=== PATIENT | male | born 1985 | race Caucasian/White ===

== ENCOUNTER 2022-08-04 21:03 | Emergency (ER) | payer MEDICAID, SELFPAY ==
[2022-08-04 21:12] VITALS: BP 132/87; PULSE 119; RESP 18; TEMP 36.5; O2SAT 98; BMI 30.1
--- NOTE | 2022-08-04 21:58 | ED_ITS ---
HPI - Wound/Laceration General Chief Complaint: Wound/Laceration Stated Complaint: laceration on lip Time Seen by Provider: 08/04/22 21:57 Source: patient Mode of arrival: ambulatory Limitations: no limitations History of Present Illness HPI narrative: 37-year-old male presents with laceration to his bottom lip after being hit in the face with a piece of wood. He was cutting wood and a piece flew back into his face. It is unknown when his last Tdap vaccine was updated. He does not report any other injuries. Onset (ago): hour(s) (Within the hour of arrival) Location: face Place: home Patient tetanus UTD: No Context: accidental Associated symptoms: pain Related Data Previous Rx's Medication Instructions Recorded amoxicillin 875 mg-potassium 1 tab PO Q12H 7 days #14 tabs 08/04/22 clavulanate 125 mg tablet Allergies Allergy/AdvReac Type Severity Reaction Status Date / Time No Known Allergies Allergy Verified 08/04/22 21:58 Review of Systems Review of Systems: Constitutional: No Fever, No Chills ENT/Mouth: No Ear Pain, No Hoarseness, No sore throat Eyes: No Eye Pain, No Swelling, No Redness, No Foreign Body Cardiovascular: No Chest Pain, No SOB Respiratory: No Cough, No Dyspnea Gastrointestinal: No Nausea, No Vomiting, No Diarrhea, No abdominal Pain Genitourinary: No Dysuria, No Hematuria Musculoskeletal: No joint pain, No Myalgias, No Joint Swelling Skin: Positive lower lip laceration, No rash Neuro: No Weakness, No Numbness, No Paresthesias, No Loss of Consciousness, No Dizziness, No Headache Psych: No Anxiety/Panic, No Depression Heme/Lymph: no easy bruising, no Lymphadenopathy Endocrine: No Polyuria, No Polydipsia Yes all other systems are reviewed and are negative FORMERLY [facility], [facility]–1983 Past Medical History Attestation statement: The following information was validated with the patient. Source: old records reviewed Social History Social History Advance Directives: No Advance Directives Information Provided: No Physical Exam Vital Signs: Vital Signs: Last Vital Signs Temp 97.7 F 08/04/22 21:12 Pulse 119 H 08/04/22 21:12 Resp 18 08/04/22 21:12 BP 132/87 08/04/22 21:12 Pulse Ox 98 08/04/22 21:12 O2 Del Method 08/04/22 21:12 BMI result Body Mass Index 30.1 Appearance: Alert. Oriented X3. No acute distress. Eyes: Pupils equal, round and reactive to light. ENT: Pharynx normal. Neck: Normal inspection. Neck supple. CVS: Normal heart rate and rhythm. Pulses normal. Respiratory: No respiratory distress. Breath sounds normal. Abdomen: Soft and nontender. Skin: 1 cm laceration to the lower lip, Skin warm and dry. Normal skin color. Normal skin turgor. Extremities: Gait well balanced well coordinated Neuro: No motor deficit. No sensory deficit. Cranial nerves 2-12 intact Course Course Course Narrative: 37-year-old male presents for laceration to the lower lip. Unknown when his last Tdap vaccine was updated. Will update today. Irrigated with copious amounts of sterile saline, no foreign bodies noted. Prepped and draped in sterile fashion. Please refer to procedure note for full details. No other injuries noted. Patient understands signs and symptoms indicating infection. Plan of care is to discharge home, prescription for Augmentin. Patient verbalized understanding of and agrees to plan of care. MDM - Wound/Laceration Differential Diagnosis Differential diagnosis: Likely laceration Medical Records Attestation: I reviewed the patient's medical records. Procedures Laceration Laceration 1: Site: lip (Mid lower lip) Size (cm): 1.5 Description: linear Depth: simple, single layer Local Anesthetic: lidocaine 1% and with epi Amount of anesthesia used (mL): 2 Pre-repair: wound explored, irrigated extensively and deep structures intact Skin layer closed with: other (Chromic gut) Size (cm): 6-0 Number of sutures: 5 Technique: simple, interrupted Discharge Plan Discharge Clinical Impression: Laceration Patient Disposition: Home, Self-Care Instructions: Care For Your Absorbable Stitches (ED), Facial Laceration (ED) Additional Instructions: You were evaluated for laceration to the lower lip. We placed 5 dissolvable sutures. Please follow absorbable stitch instructions. Try not to smoke while the sutures are in place. Smoking will increase risk for infection. Do not eat really hot in temperature foods. Do not eat acidic, salty, spicy, or vinegar foods while wound is healing. Take Augmentin 875 mg twice a day for the next 7 days. We updated your Tdap vaccine today Thank you for choosing this emergency department for evaluation. Please follow-up with primary care physician as needed. Return to the emergency department for any new, concerning, or worsening symptoms. Prescriptions: New amoxicillin-pot clavulanate 875-125 mg tablet 1 tab PO Q12H 7 Days Qty: 14 0RF
[2022-08-04] MEDS: Amoxicillin/Potassium Clav 875 MG TABLET PO (23:07)
[2022-08-04] MEDS: Diphth,Pertus(ACell),Tet Adult 0.5 ML SYRINGE IM (23:08)
[2022-08-04] MEDS: Lidocaine HCl 2% PF/Epi 1:200 20 ML VIAL INFILTRATI (23:09)
== END 2022-08-04 23:50 | disposition home or self-care (01) ==
PROVIDERS: Emergency Provider Emergency Medicine Emergency Medical Services
DX: S00.511A Abrasion of lip, initial encounter (principal); W26.9XXA Contact with unspecified sharp object(s), initial encounter; Y93.9 Activity, unspecified; Y92.9 Unspecified place or not applicable; Y99.9 Unspecified external cause status; Z79.899 Other long term (current) drug therapy
CPT/HCPCS: 12011; 90471; 90715; 99282; 99284

== ENCOUNTER 2023-12-24 12:35 | Emergency (ER) | payer OTHER, SELFPAY ==
[2023-12-24 13:25] VITALS: BP 157/85; PULSE 113; RESP 18; TEMP 37.1; BMI 31.3
--- NOTE | 2023-12-24 13:35 | ED_ITS ---
HPI - Medical Clearance General Chief complaint: Medical Clearance Stated complaint: Methadone Time Seen by Provider: 12/24/23 13:50 Source: patient Mode of arrival: ambulatory Limitations: no limitations History of Present Illness HPI Narrative: Patient is a 38-year-old male with history of opioid use disorder presenting to the emergency department requesting medical clearance to start at methadone clinic tomorrow. He reports using 20-30 bags daily. Has been on methadone through [facility] in the past. States he spoke with the clinic and was told if he came to the ED for medical clearance he could start at the clinic tomorrow. Last used 3 bags at 5am today. complaint: medical clearance requested Traumatic Symptoms: denies traumatic injury Associated Symptoms: other (feels anxious) Related Information Previous Rx's Medication Instructions Recorded amoxicillin 875 mg-potassium 1 tab PO Q12H 7 days #14 tabs 08/04/22 clavulanate 125 mg tablet Allergies Allergy/AdvReac Type Severity Reaction Status Date / Time No Known Allergies Allergy Verified 07/17/23 15:16 Review of Systems Review of Systems: As per HPI. Yes all other systems are reviewed and are negative Constitutional: Constitutional: Reports as per HPI [facility] Social History Social History (System 07/17/23 @ 15:16 by Zoey Thomas) Advance Directives: No Physical Exam Vital Signs: Vital Signs: Last Vital Signs Temp 98.8 F 12/24/23 13:25 Pulse 113 H 12/24/23 13:25 Resp 18 12/24/23 13:25 BP 157/85 H 12/24/23 13:25 BMI result Body Mass Index 31.3 Vital signs have been reviewed and appear to be correct. Blood pressure elevated. Heart rate tachycardic. Respiratory rate normal. Temperature normal. Const: General: cooperative, healthy appearing and no acute distress Orientation/consciousness: oriented to person, oriented to place, oriented to time and patient oriented x3 Limitations: no limitations HEENT: Head: Yes normocephalic and Yes atraumatic Ears: external ears normal General nose exam: Normal external nose present Face and sinus: Yes face symmetric Mouth: oropharynx normal and moist mucous membranes Throat: Yes uvula midline Eyes: Pupils: Equal, round and reactive pupils present Neck: Neck: Yes normal visual inspection and Yes supple Resp: Effort & Inspection: normal respiratory effort and able to speak in complete sentences Auscultation: clear to auscultation bilaterally Cardio: Rate: regular rate Rhythm: regular rhythm Heart sounds: S1 normal heart sound present and S2 normal heart sound present GI: Palpation (GI): Soft to palpation and nontender Auscultation: normoactive bowel sounds : General: Yes no CVA tenderness Back/Spine/Pelvis: Back: no CVA tenderness Skin: General skin exam: elasticity normal and turgor normal Neuro: General: oriented to person, oriented to place, oriented to time, patient oriented x3, moves all extremities, no focal motor deficits and CN's II- XI intact bilaterally Cranial nerves: Yes Equal, round and reactive pupils present Cognition (Neuro): normal cognition Extrem: General: Yes full ROM, Yes no pedal edema and Yes no calf tenderness Psych: Mental Status: mental status grossly normal Affect: normal affect Thought process: Normal thought process present Course Course Course Narrative: This is an RME: Additional HPI, ROS, PE not included below will be deferred to primary provider. This is a 38-year-old male, the history of opioid use disorder, presenting to the emergency department for evaluation of wanting to start methadone. He is here for his 1st dose today. Using 30-40 bags of heroin a day. Has previously been on methadone before. Plan: EKG, addiction medicine Medical Decision Making Medical Decision Making [facility] Narrative: Patient is a 38-year-old male with history of opioid use disorder presenting to the emergency department requesting medical clearance to start at methadone clinic tomorrow. On exam patient is awake, A+Ox3, tachycardic, BP elevated, afebrile, normal neurological exam without focal deficits, physical exam findings as above. Given reported symptoms and physical exam findings, initial differential includes opioid use disorder, opioid dependence. EKG shows normal sinus rhythm. Urine drug screen positive for fentanyl. Patient medicated with 30 mg of methadone in the emergency department and also provided with take home Narcan and instructions. Patient evaluated by addiction medicine. Patient discharged home with instructions to follow-up at [facility] in the morning. Return precautions discussed at bedside. Patient verbalized understanding of and agreement with plan. Differential Diagnosis Differential Diagnoses: The differential diagnosis associated with the presentation includes As per [facility]. Lab Data [facility] Lab Attestation statement: I reviewed the patient's lab results. As per [facility] Labs: Lab Results 12/24/23 Range/Units 14:41 Urine Opiates Screen Not Detected (Not Detect) Urine Fentanyl Screen POSITIVE H (Not Detect) Ur Barbiturates Screen Not Detected (Not Detect) Ur Phencyclidine Scrn Not Detected (Not Detect) Ur Amphetamines Screen Not Detected (Not Detect) U Benzodiazepines Scrn Not Detected (Not Detect) Urine Cocaine Screen Not Detected (Not Detect) U Marijuana (THC) Screen Not Detected (Not Detect) Independent Interpretation I performed an independent interpretation of an: EKG (normal sinus rhythm, rate 96 bpm, normal HI interval and QTc) External Record Review External record reviewed: Inpatient record, Office record and Outpatient record Discharge Plan Discharge Clinical Impression: Opioid dependence Patient Disposition: Home, Self-Care Instructions: Methadone (By mouth), Naloxone (Into the nose), Opioid Withdrawal (ED), Opioid Use Disorder (ED) Additional Instructions: You were seen in the emergency department today for medical clearance prior to starting at methadone clinic tomorrow. Your EKG showed normal sinus rhythm. Your urine drug screen was positive for fentanyl. Your medicated with 30 mg of methadone in the emergency department today. You were seen by our addiction medicine team. Please follow up with the clinic tomorrow as planned. You are being provided with take-home Narcan, please use if needed. Return to the emergency department with any concerning symptoms. Prescriptions: No Action amoxicillin-pot clavulanate 875-125 mg tablet 1 tab PO Q12H 7 Days Qty: 14 0RF
--- NOTE | 2023-12-24 13:36 | ECG_ITS ---
Test Reason : STARTING METHADONE Blood Pressure : / mmHG Vent. Rate : 096 BPM Atrial Rate : 096 BPM P-R Int : 146 ms QRS Dur : 080 ms QT Int : 340 ms P-R-T Axes : 071 057 061 degrees QTc Int : 429 ms Normal sinus rhythm Possible Left atrial enlargement Borderline ECG No previous ECGs available Referred By: Latrice Toscano Electronically Signed By:YAZAN FRANCO
--- NOTE | 2023-12-24 14:50 | PC.NURSE ---
urine obtained/sent to lab.
[2023-12-24 14:58] LABS: Amphetamine Screen Urine Not Detected (Not Detect); Barbiturates, Urine Not Detected (Not Detect); Benzodiazepines Screen Urine Not Detected (Not Detect); Cannabinoid Screen Urine Not Detected (Not Detect); Cocaine Screen Urine Not Detected (Not Detect); Fentanyl, urine POSITIVE (Not Detect); Opiate Screen Urine Not Detected (Not Detect); Phencyclidine Screen Urine Not Detected (Not Detect)
[2023-12-24] MEDS: methADONE HCl 20 MG/2 ML ORAL.CONC 30 MG PO (15:42)
[2023-12-24 15:45] VITALS: BP 141/92; PULSE 101; RESP 18; O2SAT 100
[2023-12-24] MEDS: Naloxone HCl Nasal TAKE HOME 4 MG SPRAY 8 MG NOSTRILALT (15:57)
--- NOTE | 2023-12-24 16:00 | PC.NURSE ---
medication administered per provider order. pt provided w/ last dose letter.
--- NOTE | 2023-12-24 16:02 | MHC.RECOVRN ---
Pts referral sent to [facility].
[2023-12-24 16:34] VITALS: BP 141/92; PULSE 101; RESP 18; TEMP 37; O2SAT 100
== END 2023-12-24 16:35 | disposition home or self-care (01) ==
PROVIDERS: Physician Assistant Medical; Emergency Provider Emergency Medicine
DX: F11.20 Opioid dependence, uncomplicated (principal); R00.0 Tachycardia, unspecified; Z79.899 Other long term (current) drug therapy; Z71.51 Drug abuse counseling and surveillance of drug abuser
CPT/HCPCS: 80307; 93005; 99284

== ENCOUNTER → 2023-12-24 13:36 | Outpatient (BNV) | payer OTHER, SELFPAY | PROVIDERS: Emergency Provider Emergency Medicine; Visit Provider Internal Medicine | DX: R94.31 Abnormal electrocardiogram [ECG] [EKG] (principal) | CPT/HCPCS: 93010 ==